=== PATIENT | male | born 1985 | race Asian ===

== ENCOUNTER 2018-09-04 15:54 | Emergency (ER) | payer SELFPAY ==
[~2018-09-04] VITALS: Ht 180.3 cm; Wt 79.4 kg
[2018-09-04] MEDS ORDERED: IOHEXOL 300 MG/ML 100ML BOTTLE IJ ONE (16:57)
[2018-09-04] MEDS ORDERED: LIDOCAINE 2% (LOCAL ANESTH.) PF 5ml SDV ONE ×2 (18:00→18:02)
[2018-09-04] MEDS ORDERED: LORazepam 2MG/ML-1ML VIAL ONE (18:06)
[2018-09-04] MEDS ORDERED: ONDANSETRON HCL 4 MG/2 ML VIAL ONE (18:07)
[2018-09-04] MEDS ORDERED: MORPHINE SULFATE 4 MG/ML SYR/VIAL ONE (18:07)
[2018-09-04] MEDS ORDERED: MORPHINE SULFATE 4 MG/ML SYR/VIAL IV ONE (19:00)
[2018-09-04] MEDS ORDERED: LORazepam 2MG/ML-1ML VIAL IV ONE (19:00)
[2018-09-04] MEDS ORDERED: ONDANSETRON HCL 4 MG/2 ML VIAL IV ONE (19:00)
[2018-09-04 20:09] LABS: Basophils # (auto) 0 uL; Basophils % (auto) 0.2 % (0.0-2.0); Eosinophils # (auto) 0 uL; Eosinophils % (auto) 0.1 % (0.0-7.0); Hematocrit 40.6 % (41.0-53.0); Hemoglobin 12.9 g/dL (13.5-17.5); Lymphocytes # (auto) 0.5 uL; Lymphocytes % (auto) 3.3 % (10.0-50.0); Mean Corpuscular Hgb Conc. 31.7 g/dL (32.0-36.0); Mean Corpuscular Volume 94.5 fL (80.0-100.0); Monocytes # (auto) 0.7 uL; Monocytes % (auto) 5.3 % (0.0-12.0); Neutrophils # (auto) 12.8 uL; Neutrophils % (auto) 91.1 % (37.0-80.0); Platelet Count (auto) 305 10^3/uL (140-450); Red Blood Cells 4.29 10^6/uL (4.5-5.90); Red Cell Distribution Width 12.8 % (11.8-14.3)
[2018-09-04 20:23] LABS: INR 0.93 (0.9-1.15)
[2018-09-04 20:47] VITALS: BP 139/65
[2018-09-04 20:54] LABS: Albumin 3.7 g/dL (3.4-5.0); BUN/Creatinine Ratio 19.8; Calcium 7.9 mg/dL (8.5-10.1); Potassium 3.6 mmol/L (3.5-5.1)
[2018-09-04 20:57] LABS: Bilirubin, Total 0.4 mg/dL (0.2-1.0); Total Protein 7.2 g/dL (6.4-8.2)
== END 2018-09-04 20:59 | disposition short-term general hospital (02) ==
LOC: EDBD 15:54 → ER 16:00
DX: S22.42XA Multiple fractures of ribs, left side, initial encounter for closed fracture (principal); J93.9 Pneumothorax, unspecified; S09.8XXA Other specified injuries of head, initial encounter; W17.89XA Other fall from one level to another, initial encounter; Y93.23 Activity, snow (alpine) (downhill) skiing, snowboarding, sledding, tobogganing and snow tubing; Y92.828 Other wilderness area as the place of occurrence of the external cause; Y99.8 Other external cause status
CPT/HCPCS: 32551; 36415; 70450; 71045; 71046; 71260; 74177; 80053; 85025; 85610; 85730; 96374; 96375; 99291; J2001; J2060; J2270; J2405; Q9967